=== PATIENT | female | born 1995 | race Caucasian/White ===

== ENCOUNTER 2024-08-09 16:05 | Inpatient (IN) ==
[2024-08-09] MEDS ORDERED: LIDOCAINE 1% LOCAL 20 ML VIAL INFIL PRN (17:53)
--- NOTE | 2024-08-09 17:54 | History & Physical Report ---
Date of Service August 09, 2024 Assessment & Plan (1) Supervision of normal intrauterine in primigravida: (2) SROM (spontaneous rupture of membranes): Plan 28 yo G1 at 38 4/7 wga presents w/ SROM/labor VSS Fetus cat 1 labor - ctx worsening but not ready for epidural. Will ambulate after admission, augment prn gbs neg epidural prn History of Present Illness Chief Complaint: ROM Primary Care Provider: Fabiola Kim DO 28 yo G1 at 38 4/7 wga presents w/ LOF since this pm. Woke up to a big contraction and had large gush after. Continued to leak clear fluid since then. 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 Brother No problems noted. Denies family history of Ovarian cancer Prostate cancer Breast cancer Colorectal cancer Social History Smoking Status: Former smoker Tobacco Type: Cigarettes Age Started Using Tobacco: 16; Age Quit Using Tobacco: 22; packs per day: 0.5; Second Hand Exposure: No; Do You Dip or Chew Tobacco: No; Hx Alcohol Use: Yes Alcohol type: beer and wine Alcohol Intake Frequency: 2-4 x/Month Alcohol Intake Frequency Comment: social Hx Substance Use: No Preferred Language: Sinhala Communication Ability: Effective Visual Impairment: No Limitations Hearing Ability: Normal Supervisor [employer] Required: No Beliefs That Will Affect Care: None marital status: marital status details: Renard (30) [phone] Current Living Situation: Spouse Current Living Situation Comment: - Renard and [id number] - Emeterio (15yo) 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: 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 [employer] Other Information That Helps Us Care for You: No Feels Safe at Home: Yes Safety Concerns: Feels Safe At This Time Diet: regular Diet Comment: regular caffeine: Yes (1 cup of coffee daily ) during the past year weight has: other Dental Care, Regularly: Yes Physical Activity Frequency: 5-6 Times per Week Seatbelt Use: always Sunscreen Use: Yes Gender Identity: Female Assistive Devices: None Physical Exam Genitourinary: OB Exam Abdomen: + vertex (confirmed by bsus) and + estimated weight (7-8) Manual OB Exam: + cervical dilation 1 cm, + cervical effacement 70%, + station -2 and + amniotic fluid (+nitrazine and ferning, minimal pooling) OB Exam Monitor Tracing: + external FHT monitor used, + external uterine monitor used (q5-6) and + category I (125/mod/+accel/-decel) Results & Data Vital Signs (Past 12 Hours) Vital Signs Temp Pulse Resp BP O2 Del Method 08/09/24 17:39 18 08/09/24 17:39 98.6 F 18 08/09/24 17:30 18 08/09/24 17:30 18 08/09/24 17:02 60 118/55 L 08/09/24 16:22 98.2 F 70 16 127/62 Room Air 08/09/24 16:14 70 127/62 Laboratory Results OB Labs: Blood Type A Positive 01/26/24 Antibody Screen NEGATIVE 01/26/24 Hgb 13.0 g/dl (12.0-16.0) 05/27/24 Hct 36.8 % (37.0-47.0) L 05/27/24 MCV 92.1 fL (80.0-100.0) 01/26/24 Plt Count 278 K/uL (130-400) 01/26/24 Rubella IgG Antibody Immune (Immune) 01/26/24 Treponema pallidum Ab Negative (Negative) 05/27/24 Hep Bs Antigen Negative (Negative) 01/26/24 Hepatitis C Antibody Negative (Negative) 01/26/24 HIV 1&2 Ab/P24 Ag 4thGn Negative (Negative) 01/26/24 Glucose 1 Hr 50 gm 115 mg/dl (70-130) 05/27/24 OB Optional Labs: Chlamydia trachomatis RNA Not Detected (NotDetected) 01/26/24 Neisseria gonorrhoeae RNA Not Detected (NotDetected) 01/26/24 Labs Reviewed: immune hep B.--[facility] declines genetics/carrier screening--[facility] GBS neg Diagnostic Findings Ant plac Coding Level of Care Code None Diagnoses Supervision of normal intrauterine in primigravida Z34.00 SROM (spontaneous rupture of membranes)
[2024-08-09 18:29] LABS: Hematocrit (blood only) 40.4 % (37.0-47.0); Hemoglobin 14.2 g/dl (12.0-16.0); Mean Corpuscular Hemoglobin 33.4 pg (25.0-34.0); Mean Corpuscular Hgb Conc 35.1 g/dL (32.0-36.0); Mean Corpuscular Volume 95.1 fL (80.0-100.0); Mean Platelet Volume 9.1 fL (9.4-12.4); Platelet Count 223 K/uL (130-400); RDW Coefficient of Variation 12.5 % (11.5-14.5); RDW Standard Deviation 43.3 fL (36.4-46.3); Red Blood Count 4.25 M/uL (4.20-5.40); White Blood Count 11.15 K/ul (4.8-10.8)
[2024-08-09] MEDS: LACTATED RINGER'S 1,000 ML IV PRN (18:59)
[2024-08-09] MEDS ORDERED: NALOXONE HCL 0.4 MG/1 ML VIAL/CARP IV PRN (19:29)
[2024-08-09] MEDS ORDERED: LIDOCAINE 2% MPF LOCAL 5 ML VIAL EPI PRN (19:29)
[2024-08-09] MEDS ORDERED: NALBUPHINE HCL INJ 10 MG/ML AMP IV PRN (19:29)
[2024-08-09] MEDS ORDERED: SODIUM CHLORIDE 0.9% PF INJ 10 ML VIAL EPI PRN (19:29)
[2024-08-09] MEDS ORDERED: PROMETHAZINE 6.25 MG/50.25 ML BAG IV PRN (19:29)
[2024-08-09] MEDS ORDERED: ROPIVACAINE 0.5% PF 5 MG/ML 20 ML VIAL EPI PRN (19:29)
[2024-08-09] MEDS ORDERED: NALOXONE HCL 1 MG in SODIUM CHLORIDE 0.9% 1,000 ML IV PRN (19:29)
[2024-08-09] MEDS ORDERED: diphenhydrAMINE 50 MG/ML VIAL IV PRN (19:29)
[2024-08-09] MEDS ORDERED: fentaNYL citrate PF 100 MCG/2 ML VIAL EPI PRN (19:29)
[2024-08-09] MEDS ORDERED: ePHEDrine sulfate 50 MG/ML AMP IV PRN (19:29)
[2024-08-09] MEDS ORDERED: BUPIVACAINE 0.25% PF 30 ML VIAL EPI PRN (19:29)
--- NOTE | 2024-08-09 19:31 | Anesthesiology Consultation ---
Date of Service August 09, 2024 Assessment & Plan (1) Encounter for pre-operative examination: Chart Review Chart Review: Patient NOT seen in Pre Admission Testing and Acceptable Risk for Labor Epidural Consults Requested none History Height/Weight Height: 5 ft 3 in Weight: 78.925 kg Allergies Allergy/AdvReac Type Severity Reaction Status Date / Time No Known Allergies Allergy Verified 08/09/24 05:44 Medications Home Medications Medication Instructions Recorded Confirmed Last Taken prenat.vits,tyson,ngb-nvmk-tosni 1 tab PO DAILY 01/22/24 08/09/24 08/09/24 breast pump #1 ea 06/24/24 08/05/24 Unknown Active Medications Generic Name Dose Route Start Last Admin Trade Name Freq PRN Reason Stop Dose Admin Lactated Ringer's 1,000 mls @ 125 mls/hr 08/09/24 17:53 08/09/24 18:59 Lr IV 08/10/24 17:52 999 mls/hr .Q8H PRN Administration L&D Protocol Protocol Past Medical History Medical History (Updated 08/09/24 @ 19:31 by Franc Barraza MD) Encounter for pre-operative examination Exercise / Class Metabolic Activity II 4-5 Yardwork/Stairs/Walk up hill Past Family History Family History Mother Kidney stones Father Afib Prediabetes Grandfather (Paternal) Lymphoma Grandfather (Maternal) Afib Stroke Mitral valve prolapse Sister No problems noted. Brother No problems noted. Denies family history of Ovarian cancer Prostate cancer Breast cancer Colorectal cancer Past Surgical History Surgical History S/P adenoidectomy S/P trigger finger release Social History Smoking Status: Former smoker Do You Dip or Chew Tobacco: No Hx Alcohol Use: Yes Alcohol type: beer and wine Hx Substance Use: No substance use type: does not use Physical Exam Vital Signs Last Vital Signs Temp 37.0 C 08/09/24 17:39 Pulse 86 08/09/24 19:51 Resp 18 08/09/24 17:39 BP 134/81 08/09/24 19:41 Pulse Ox 100 08/09/24 19:51 O2 Del Method Room Air 08/09/24 16:22 Testing Laboratory Results 08/09/24 18:10
[2024-08-09] MEDS: fentaNYL citrate PF 100 MCG/2 ML VIAL ONE (19:57)
[2024-08-09] MEDS: LIDOCAINE 2%/EPINEPHRINE 1:200,000 20 ML PF ONE (19:57)
[2024-08-09] MEDS: BUPIVACAINE 0.25% PF 30 ML VIAL EPI STA (19:58)
[2024-08-09] MEDS: SODIUM CHLORIDE 0.9% PF INJ 10 ML VIAL EPI STA (19:58)
[2024-08-09] MEDS: LIDOCAINE 2%/EPINEPHRINE 1:200,000 20 ML PF EPI STA (19:58)
[2024-08-09] MEDS: BUPIVACAINE 0.25% PF 30 ML VIAL ONE (19:58)
[2024-08-09] MEDS: fentaNYL citrate PF 100 MCG/2 ML VIAL EPI STA (19:58)
[2024-08-09] MEDS: fentANYL 2 MCG/ML BUPIVacaine 0.125%-NSS 100ML BAG ONE (20:02)
[2024-08-10] MEDS: ONDANSETRON INJ 2 MG/ML 2 ML VIAL IV PRN (00:41)
--- NOTE | 2024-08-10 01:06 | Labor Progress Brief Note ---
Date of Service August 10, 2024 Assessment & Plan (1) Supervision of normal intrauterine in primigravida: (2) SROM (spontaneous rupture of membranes): Plan 28 yo G1 at 38 4/7 wga presents w/ SROM/labor VSS Fetus cat 1 labor - progress noted on exam, augment prn gbs neg epidural in place Admission and Anticipated Discharge Date Admission Date: August 09, 2024 Physical Exam Genitourinary: OB Exam Monitor Tracing: + external FHT monitor used, + external uterine monitor used (q4) and + category I (125/mod/+accel/-decel) SVE by RN / Results & Data Vital Signs (Past 12 Hours) Vital Signs Temp Pulse Resp BP Pulse Ox O2 Del Method 08/10/24 01:01 98.1 F 56 L 16 100 08/10/24 00:56 57 L 100 08/10/24 00:53 57 L 124/58 L 08/10/24 00:51 58 L 99 08/10/24 00:46 65 100 08/10/24 00:41 81 100 08/10/24 00:36 102 H 99 08/10/24 00:31 75 100 08/10/24 00:26 78 100 08/10/24 00:22 71 126/61 08/10/24 00:21 85 100 08/10/24 00:16 82 100 08/10/24 00:11 82 100 08/10/24 00:09 81 119/58 L 08/10/24 00:07 88 93 08/10/24 00:06 85 96 08/10/24 00:01 66 97 08/09/24 23:56 60 98 08/09/24 23:53 63 126/56 L 08/09/24 23:51 72 99 08/09/24 23:46 82 100 08/09/24 23:41 77 100 08/09/24 23:37 66 119/56 L 08/09/24 23:36 67 99 08/09/24 23:31 72 99 08/09/24 23:26 75 100 08/09/24 23:24 64 114/53 L 08/09/24 23:21 98.4 F 88 14 100 08/09/24 23:16 70 100 08/09/24 23:11 73 100 08/09/24 23:08 71 128/56 L 08/09/24 23:06 71 100 08/09/24 23:01 59 L 99 08/09/24 22:56 60 100 08/09/24 22:54 56 L 97/49 L 08/09/24 22:51 61 99 08/09/24 22:46 56 L 99 08/09/24 22:41 57 L 98 08/09/24 22:37 58 L 101/56 L 08/09/24 22:36 59 L 99 08/09/24 22:31 59 L 100 08/09/24 22:26 65 98 08/09/24 22:22 58 L 98/55 L 08/09/24 22:21 62 100 08/09/24 22:16 57 L 100 08/09/24 22:11 59 L 99 08/09/24 22:09 57 L 99/53 L 08/09/24 22:06 56 L 100 08/09/24 22:01 60 100 08/09/24 21:56 73 100 08/09/24 21:53 57 L 99/53 L 08/09/24 21:51 57 L 99 08/09/24 21:46 59 L 98 08/09/24 21:41 59 L 99 08/09/24 21:37 62 98/49 L 08/09/24 21:36 62 98 08/09/24 21:31 61 98 08/09/24 21:26 61 99 08/09/24 21:23 60 98/52 L 08/09/24 21:21 59 L 100 08/09/24 21:16 63 99 08/09/24 21:11 98.2 F 69 16 100 08/09/24 21:09 68 118/56 L 08/09/24 21:06 78 100 08/09/24 21:01 70 100 08/09/24 20:56 74 99 08/09/24 20:53 68 100/53 L 08/09/24 20:51 74 99 08/09/24 20:46 73 99 08/09/24 20:41 73 99 08/09/24 20:39 68 105/56 L 08/09/24 20:36 70 98 08/09/24 20:31 80 97 08/09/24 20:26 76 100 08/09/24 20:22 70 133/62 08/09/24 20:21 73 100 08/09/24 20:20 72 122/59 L 08/09/24 20:18 67 122/57 L 08/09/24 20:16 99 08/09/24 20:16 72 08/09/24 20:16 77 130/62 08/09/24 20:14 73 128/62 08/09/24 20:12 75 138/65 08/09/24 20:11 73 100 08/09/24 20:10 75 126/60 08/09/24 20:08 71 118/60 08/09/24 20:06 100 08/09/24 20:06 82 08/09/24 20:06 82 127/64 08/09/24 20:04 70 121/57 L 08/09/24 20:02 85 138/63 08/09/24 20:01 78 100 08/09/24 20:00 74 123/60 08/09/24 19:58 70 128/57 L 08/09/24 19:56 87 136/63 100 08/09/24 19:51 86 100 08/09/24 19:46 87 99 08/09/24 19:41 100 08/09/24 19:41 81 08/09/24 19:41 86 134/81 08/09/24 19:36 85 100 08/09/24 19:31 83 100 08/09/24 19:21 73 93 08/09/24 19:18 87 100 08/09/24 19:13 67 100 08/09/24 19:09 67 94 08/09/24 19:08 73 98 08/09/24 19:03 98 08/09/24 19:03 69 08/09/24 19:03 64 125/62 08/09/24 19:01 98.2 F 08/09/24 18:58 66 100 08/09/24 18:15 69 132/64 08/09/24 17:39 18 08/09/24 17:39 98.6 F 18 08/09/24 17:30 18 08/09/24 17:30 18 08/09/24 17:02 60 118/55 L 08/09/24 16:22 98.2 F 70 16 127/62 Room Air 08/09/24 16:14 70 127/62 Coding Level of Care Code None Diagnoses Supervision of normal intrauterine in primigravida Z34.00 SROM (spontaneous rupture of membranes)
[2024-08-10] MEDS ORDERED: LIDOCAINE 2%/EPINEPHRINE 1:200,000 20 ML PF ONE (01:18)
[2024-08-10] MEDS ORDERED: ROPIVACAINE 0.5% 5 MG/ML 30 ML VIAL ONE (01:18)
--- NOTE | 2024-08-10 01:46 | Anesthesia Procedure Note ---
Date of Service August 10, 2024 Anesthesia Epidural Re-Dose Vital Signs Temp Pulse Resp BP Pulse Ox O2 Del Method 36.7 C 66 16 104/58 L 100 Room Air 08/10/24 01:01 08/10/24 01:44 08/10/24 01:01 08/10/24 01:44 08/10/24 01:41 08/09/24 16:22 Notes Pain Intensity: 3 Dilatation (cm): 7.0 Effacement (%): 90 Called by nursing to evaluate epidural as the patient is having increased pain. The epidural was re-dosed with the following medications (all medications via epidural route) after negative aspiration of the epidural catheter for CSF/HEME. 4ml of 2% LIdocaine along with 4ml of 0.5% ropivicaine. After Epidural Re-Dose Mental Status: alert / awake / arousable Pain: improving with treatment Airway Patency, RR, SpO2: stable & adequate BP & HR: stable & adequate
[2024-08-10] MEDS: fentANYL 2 MCG/ML BUPIVacaine 0.125%-NSS 100ML BAG EPI PRN (02:32)
[2024-08-10] MEDS: SODIUM CHLORIDE 0.9% PF INJ 10 ML VIAL ONE (04:01)
[2024-08-10] MEDS: ePHEDrine sulfate 50 MG/ML AMP ONE (04:01)
[2024-08-10] MEDS: OXYTOCIN 30 UNITS/NSS 30 UNITS/500 ML BAG IV PRN ×2 (04:15→06:38)
--- NOTE | 2024-08-10 07:04 | Delivery Summary ---
Vaginal Delivery Summary Date of Service August 10, 2024 Vaginal Delivery Summary and 2nd Degree LAC PREOPERATIVE DIAGNOSIS: 1. Single intrauterine at 38 5/7 wga 2. SROM/Labor POSTOPERATIVE DIAGNOSIS: 1. Single intrauterine at 38 5/7 wga 2. SROM/Labor 3. Delivered PROCEDURE: 1. Normal spontaneous vaginal delivery. SURGEON: Charu Nunez MD ANESTHESIA: Epidural. QUANTITATIVE BLOOD LOSS: 193 mL FLUIDS: Continuous LR. URINE OUTPUT: None. COMPLICATIONS: None. CONDITION: Stable. INDICATIONS: 28 yo G1 at 38 5/7 wga presented with SROM and contractions around 1pm yesterday. She received an epidural for pain control and continued to progress spontaneously. After epidural redose, contractions spaced and so pitocin started. She was then complete and desired to push FINDINGS: A viable female infant, weight pending with Apgars of 9 and 9 at 1 and 5 minutes respectively. SPECIMEN: Cord blood OPERATIVE REPORT: The patient progressed to 10 cm, 100% effaced and +2 station, pushed over intact perineum with anesthesia to deliver a viable female , weight and Apgars as above. Head of delivered in CHLOE position. No nuchal cord was present. Body and shoulders were delivered without difficulty. was delivered to maternal abdomen and nursing staff. Delayed cord clamping was performed for 60 seconds. Cord was clamped and cut. Cord blood was obtained. Placenta delivered spontaneously intact with 3-vessel cord. IV oxytocin and fundal massage were given for excellent hemostasis. Vagina, cervix, perineum, and placenta were inspected. A second degree laceration involving bilateral sulci was repaired using 3-0 vicryl. Left labia was repaired using 4-0 vicryl in a running fashion. Right labial abrasion was hemostatic and did not need repaired. Sponge and needle counts correct x2. No sponges were left behind. Mother and stable in immediate period. [facility] Vaginal Delivery Charge Vaginal Delivery Codes: 76396 global code for the antepartum, delivery, and post- Delivery Type Details: and 2nd Degree LAC
[2024-08-10] MEDS ORDERED: HYDROCORTISONE ACETATE 25 MG SUPP PR PRN (07:22)
[2024-08-10] MEDS ORDERED: bisacodyL 10 MG SUPP PR PRN (07:22)
[2024-08-10] MEDS ORDERED: OXYTOCIN 30 UNITS/NSS 30 UNITS/500 ML BAG IV PRN (07:22)
--- NOTE | 2024-08-10 07:51 | Anesthesiology Progress Note ---
Date of Service August 10, 2024 Anesthesia Post Procedure Vital Signs Vital Signs: Temp Pulse Resp BP Pulse Ox O2 Del Method 08/10/24 07:31 20 08/10/24 07:30 71 111/58 L 08/10/24 07:16 72 109/57 L 08/10/24 07:15 98.6 F 20 08/10/24 07:07 77 100 08/10/24 07:02 81 100 08/10/24 07:00 73 126/60 08/10/24 06:57 77 100 08/10/24 06:52 78 100 08/10/24 06:47 80 99 08/10/24 06:45 81 119/53 L 08/10/24 06:42 77 99 08/10/24 06:37 92 H 100 08/10/24 06:32 121 H 99 08/10/24 06:31 79 129/59 L 08/10/24 06:27 113 H 100 08/10/24 06:23 98 H 91 08/10/24 06:22 102 H 100 08/10/24 06:17 82 100 08/10/24 06:16 121 H 88 L 08/10/24 06:12 79 100 08/10/24 06:09 87 92 08/10/24 06:07 83 100 08/10/24 06:02 80 91 08/10/24 06:01 90 135/66 08/10/24 05:57 77 100 08/10/24 05:52 77 100 08/10/24 05:47 60 99 08/10/24 05:46 62 97/53 L 08/10/24 05:42 68 99 08/10/24 05:37 58 L 99 08/10/24 05:32 57 L 100 08/10/24 05:31 59 L 105/55 L 08/10/24 05:27 70 99 08/10/24 05:22 66 100 08/10/24 05:17 59 L 100 08/10/24 05:15 59 L 106/55 L 08/10/24 05:12 56 L 100 08/10/24 05:07 56 L 100 08/10/24 05:02 80 100 08/10/24 04:57 62 100 08/10/24 04:52 59 L 99 08/10/24 04:47 100 08/10/24 04:47 59 L 08/10/24 04:47 57 L 113/54 L 08/10/24 04:42 62 100 08/10/24 04:37 60 100 08/10/24 04:32 65 100 08/10/24 04:30 63 112/57 L 08/10/24 04:27 61 100 08/10/24 04:22 91 H 100 08/10/24 04:19 74 93 08/10/24 04:17 100 08/10/24 04:17 68 08/10/24 04:17 60 100/50 L 08/10/24 04:12 55 L 99 08/10/24 04:07 59 L 99 08/10/24 04:05 16 08/10/24 04:05 98.2 F 16 08/10/24 04:02 54 L 85/44 L 100 08/10/24 03:57 55 L 99 08/10/24 03:52 54 L 100 08/10/24 03:47 100 08/10/24 03:47 55 L 08/10/24 03:47 55 L 88/44 L 08/10/24 03:42 56 L 100 08/10/24 03:37 56 L 100 08/10/24 03:32 55 L 100 08/10/24 03:31 56 L 89/45 L 08/10/24 03:27 57 L 100 08/10/24 03:22 54 L 100 08/10/24 03:17 54 L 100 08/10/24 03:15 54 L 87/44 L 08/10/24 03:12 56 L 99 08/10/24 03:07 55 L 99 08/10/24 03:02 56 L 100 08/10/24 03:00 54 L 95/48 L 08/10/24 02:57 59 L 100 08/10/24 02:52 57 L 100 08/10/24 02:47 60 91/46 L 100 08/10/24 02:42 64 100 08/10/24 02:37 57 L 100 08/10/24 02:32 74 98 08/10/24 02:27 75 L 08/10/24 02:27 97 H 08/10/24 02:27 94 H 89 L 08/10/24 02:22 75 100 08/10/24 02:17 57 L 100 08/10/24 02:16 56 L 106/53 L 08/10/24 02:12 59 L 99 08/10/24 02:07 62 100 08/10/24 02:02 57 L 100 08/10/24 02:01 57 L 104/54 L 08/10/24 01:56 58 L 100 08/10/24 01:51 61 100 08/10/24 01:46 67 100 08/10/24 01:44 66 104/58 L 08/10/24 01:42 77 105/62 08/10/24 01:41 75 100 08/10/24 01:40 68 104/59 L 08/10/24 01:38 79 110/54 L 92 08/10/24 01:36 79 112/55 L 100 08/10/24 01:34 83 109/60 08/10/24 01:32 76 116/59 L 08/10/24 01:31 74 100 08/10/24 01:30 67 115/60 08/10/24 01:28 71 116/57 L 08/10/24 01:26 100 08/10/24 01:26 63 08/10/24 01:26 69 118/57 L 08/10/24 01:24 63 116/56 L 08/10/24 01:21 67 99 08/10/24 01:16 56 L 98 08/10/24 01:11 57 L 98 08/10/24 01:08 59 L 121/58 L 08/10/24 01:06 56 L 99 08/10/24 01:01 98.1 F 56 L 16 100 08/10/24 00:56 57 L 100 08/10/24 00:53 57 L 124/58 L 08/10/24 00:51 58 L 99 08/10/24 00:46 65 100 08/10/24 00:41 81 100 08/10/24 00:36 102 H 99 08/10/24 00:31 75 100 08/10/24 00:26 78 100 08/10/24 00:22 71 126/61 08/10/24 00:21 85 100 08/10/24 00:16 82 100 08/10/24 00:11 82 100 08/10/24 00:09 81 119/58 L 08/10/24 00:07 88 93 08/10/24 00:06 85 96 08/10/24 00:01 66 97 08/09/24 23:56 60 98 08/09/24 23:53 63 126/56 L 08/09/24 23:51 72 99 08/09/24 23:46 82 100 08/09/24 23:41 77 100 08/09/24 23:37 66 119/56 L 08/09/24 23:36 67 99 08/09/24 23:31 72 99 08/09/24 23:26 75 100 08/09/24 23:24 64 114/53 L 08/09/24 23:21 98.4 F 88 14 100 08/09/24 23:16 70 100 08/09/24 23:11 73 100 08/09/24 23:08 71 128/56 L 08/09/24 23:06 71 100 08/09/24 23:01 59 L 99 08/09/24 22:56 60 100 08/09/24 22:54 56 L 97/49 L 08/09/24 22:51 61 99 08/09/24 22:46 56 L 99 08/09/24 22:41 57 L 98 08/09/24 22:37 58 L 101/56 L 08/09/24 22:36 59 L 99 08/09/24 22:31 59 L 100 08/09/24 22:26 65 98 08/09/24 22:22 58 L 98/55 L 08/09/24 22:21 62 100 08/09/24 22:16 57 L 100 08/09/24 22:11 59 L 99 08/09/24 22:09 57 L 99/53 L 08/09/24 22:06 56 L 100 08/09/24 22:01 60 100 08/09/24 21:56 73 100 08/09/24 21:53 57 L 99/53 L 08/09/24 21:51 57 L 99 08/09/24 21:46 59 L 98 08/09/24 21:41 59 L 99 08/09/24 21:37 62 98/49 L 08/09/24 21:36 62 98 08/09/24 21:31 61 98 08/09/24 21:26 61 99 08/09/24 21:23 60 98/52 L 08/09/24 21:21 59 L 100 08/09/24 21:16 63 99 08/09/24 21:11 98.2 F 69 16 100 08/09/24 21:09 68 118/56 L 08/09/24 21:06 78 100 08/09/24 21:01 70 100 08/09/24 20:56 74 99 08/09/24 20:53 68 100/53 L 08/09/24 20:51 74 99 08/09/24 20:46 73 99 08/09/24 20:41 73 99 08/09/24 20:39 68 105/56 L 08/09/24 20:36 70 98 08/09/24 20:31 80 97 08/09/24 20:26 76 100 08/09/24 20:22 70 133/62 08/09/24 20:21 73 100 08/09/24 20:20 72 122/59 L 08/09/24 20:18 67 122/57 L 08/09/24 20:16 99 08/09/24 20:16 72 08/09/24 20:16 77 130/62 08/09/24 20:14 73 128/62 08/09/24 20:12 75 138/65 08/09/24 20:11 73 100 08/09/24 20:10 75 126/60 08/09/24 20:08 71 118/60 08/09/24 20:06 100 08/09/24 20:06 82 08/09/24 20:06 82 127/64 08/09/24 20:04 70 121/57 L 08/09/24 20:02 85 138/63 08/09/24 20:01 78 100 08/09/24 20:00 74 123/60 08/09/24 19:58 70 128/57 L 08/09/24 19:56 87 136/63 100 08/09/24 19:51 86 100 08/09/24 19:46 87 99 08/09/24 19:41 100 08/09/24 19:41 81 08/09/24 19:41 86 134/81 08/09/24 19:36 85 100 08/09/24 19:31 83 100 08/09/24 19:21 73 93 08/09/24 19:18 87 100 08/09/24 19:13 67 100 08/09/24 19:09 67 94 08/09/24 19:08 73 98 08/09/24 19:03 98 08/09/24 19:03 69 08/09/24 19:03 64 125/62 08/09/24 19:01 98.2 F 08/09/24 18:58 66 100 08/09/24 18:15 69 132/64 08/09/24 17:39 18 08/09/24 17:39 98.6 F 18 08/09/24 17:30 18 08/09/24 17:30 18 08/09/24 17:02 60 118/55 L 08/09/24 16:22 98.2 F 70 16 127/62 Room Air 08/09/24 16:14 70 127/62 Transfer of Care Handoff Completed per policy Notes Mental Status: alert / awake / arousable and participated in evaluation Patient Amnestic to Procedure: Yes Nausea / Vomiting: adequately controlled Pain: adequately controlled Airway Patency, RR, SpO2: stable & adequate BP & HR: stable & adequate Hydration State: stable & adequate Neuraxial Anesthesia: was administered and sensory block is resolving Anesthetic Complications: no major complications apparent and Pt Satisfied with anesthetic care
[2024-08-10] MEDS: miSOPROStoL 200 MCG TAB ONE (08:14)
--- NOTE | 2024-08-10 08:39 | Communication Note ---
Date of Service: August 10, 2024 Called by nursing due to bleeding. Pt had been feeding for a while and nursing did fundal check and large amount of clot expressed. Immediately presented to bedside, the chux with large clot was weighed. Fundus felt firm, gentle digital exam revealed cervix to be 1-2cm and ANASTASIA did not feel atonic. Lacerations did not appear to be bleeding. Bleeding improved with continued fundal massage. 1000mcg cytotec placed pr with additional bag of pitocin. Total qbl was 474 for this episode. Will continue to monitor
[2024-08-10] MEDS: IBUPROFEN 600 MG TAB PO PRN (08:57)
[2024-08-10] MEDS: DOCUSATE SODIUM 100 MG CAP PO SCH (08:58)
[2024-08-10] MEDS: PRENATAL VITAMIN 1 TAB PO SCH (08:58)
[2024-08-10] MEDS: DIPHTHER/TETAN/PERTUS Vaccine (Tdap, Adol/Adult) 0.5mL IM ONE (11:00)
[2024-08-10] MEDS: NURSING L&D Epidural Breakthrough Pain Update ONE (11:01)
[2024-08-10] MEDS: BENZOCAINE 20% SPRY 85 APPLN/85 GM CAN EXT PRN (11:50)
[2024-08-10 20:59] VITALS: RESP 16
--- NOTE | 2024-08-11 07:15 | Obstetrical Progress Note ---
Date of Service August 11, 2024 Assessment & Plan (1) SROM (spontaneous rupture of membranes): Patient doing well. Minimal bleeding, no extremity pain she has no calf tenderness she is tolerating a regular diet she is voiding well she has no depression Instructions are reviewed and when to call she is advised to call the office for a follow-up appointment and sooner if she is having a problem Subjective Ambulation: ambulating normally Voiding: no voiding problems Passing Gas:: Yes Diet Tolerance:: regular diet Lochia:: Small Feeding Type:: breast feeding Physical Exam Constitutional WD/WN, vitals as above well developed and well nourished Respiratory normal respiratory effort, lungs clear to auscultation normal respiratory effort Cardiovascular RRR, no murmur, no edema Gastrointestinal (Abdomen) normal bowel sounds, soft, nontender, no hepatosplenomegaly Results & Data Vital Signs (Past 12 Hours) Vital Signs Temp Pulse Resp BP O2 Del Method 08/11/24 03:30 98.1 F 74 16 111/71 Room Air 08/10/24 23:09 98.4 F 71 16 110/74 Room Air 08/10/24 19:45 98.2 F 78 16 109/68 Room Air
[2024-08-11] MEDS: ACETAMINOPHEN 325 MG TAB PO PRN (08:38)
[2024-08-11 09:19] VITALS: O2SAT 99
[2024-08-11] MEDS: bisacodyL 5 MG TABEC PO SCH (20:40)
--- NOTE | 2024-08-12 06:47 | Obstetrical Progress Note ---
Date of Service August 12, 2024 Assessment & Plan (1) state: (2) Perineal laceration during delivery: Plan Jackie is 28yo ppd 2 s/p with 2nd degree perineal laceration. Feels well today, VSS Continue care Encourage ambulation and Pain control with ibuprofen as needed Hgb: 14.2 Home today Follow up in 6wks Admission and Anticipated Discharge Date Admission Date: August 09, 2024 Supervising Physician Co-Signing Physician Notes Resident Physician Supervision Note: I was present with Dr. Dexter during the history and exam. I discussed the case with the resident and agree with the findings and plan as documented in the note. Any exceptions or clarifications are listed here: doing well, eating, voiding, ambulating. abd soft u2down nt, ext nt calves. ppd#2 s/p , stable, ready to dc home. instructions reviewed. f/u 6 wk pp. breast, rhpos, ri. Documented By: Sandra Watts MD, FACOG Subjective Jackie is 28yo ppd 2 s/p with 2nd degree perineal laceration. Feeling: good, a bit sore Ambulation: yes Void: yes Lochia: small Diet: tolerating Feeding: breast, no concerns Sx: denies Physical Exam Physical Exam: Constitutional: WD/WN, vitals as above GI/abd: +BS, fundus firm 2fw inf to umbilicus LE: no edema, nontender to palpation, wiggles toes Psychiatric: A&Ox3, euthymic Results & Data Vital Signs (Past 12 Hours) Vital Signs Temp Pulse Resp BP O2 Del Method 08/12/24 00:01 36.3 C L 65 16 117/78 Room Air 08/11/24 20:15 36.8 C 83 16 118/72 Room Air Resident Activity Tracking Resident Involvement: Resident Care Provided Care Provided: OB Delivery (2) Perineal laceration during delivery Perineal laceration degree: second degree Qualified Code(s): O70.1 - Second degree perineal laceration during delivery
[2024-08-12 07:56] VITALS: BP 110/65; PULSE 68; TEMP 98.1
== END 2024-08-12 10:49 | disposition home or self-care (01) | DRG 807 ==
LOC: OPB 16:05 → 4S1 16:10 → 4E2 08-10 10:27